=== PATIENT | male | born 1950 | race Caucasian/White ===

== ENCOUNTER → 2018-03-09 | Outpatient (CLI) | payer MEDICARE, OTHER | LOC: GMAJS 12:19 | PROVIDERS: ATTEND Physician Assistant | DX: E11.9 Type 2 diabetes mellitus without complications (principal); Z12.5 Encounter for screening for malignant neoplasm of prostate | CPT/HCPCS: 84439; 84443; G0103 ==

== ENCOUNTER → 2019-06-16 | Outpatient (CLI) | payer MEDICARE, OTHER | LOC: GMAJ 11:09 | PROVIDERS: ATTEND Family Medicine | DX: E29.1 Testicular hypofunction (principal) ==

== ENCOUNTER → 2019-10-27 | Outpatient (CLI) | payer MEDICARE, OTHER | LOC: GMAJ 10:21 | PROVIDERS: ATTEND Family Medicine | DX: Z12.5 Encounter for screening for malignant neoplasm of prostate (principal); E29.1 Testicular hypofunction; I10 Essential (primary) hypertension; E11.9 Type 2 diabetes mellitus without complications | CPT/HCPCS: 84403; G0103 ==

== ENCOUNTER 2019-12-09 14:33 | Emergency (ER) | payer MEDICARE, OTHER ==
--- NOTE | 2019-12-09 14:48 | ED.PDOC ---
History of Present Illness - General Time Seen by Provider: 12/09/19 14:41 Source: patient, family Additional Information: this is a patient with hx of diabetes, patient was diagnosed with an UTI on Friday and He received a shot of rocephin and put on cipro. patient had some urinary incontinence and developed fever today. Patient was sent here by his primary md. his initial urine culture showed gram negative bacilli. patient does not appear toxic no fever 1 month ago patient had an angiogram no recent travels and no sick contacts - History of Present Illness Timing/Duration: getting worse Fever Severity/Quality: greater than 102 F Fever Therapy BEVELER: Tylenol Associated Symptoms: denies symptoms Review of Systems - Review of Systems Constitutional: States: chills, fever EENTM: States: no symptoms reported Respiratory: States: no symptoms reported Cardiology: States: no symptoms reported Gastrointestinal/Abdominal: States: no symptoms reported Genitourinary: States: frequency, other - incontinence Musculoskeletal: States: no symptoms reported Skin: States: no symptoms reported Neurological: States: no symptoms reported Endocrine: States: no symptoms reported Hematologic/Lymphatic: States: no symptoms reported Family Medical History - Family History Mother Family History: Unknown Physical Exam - Physical Exam General Appearance: Alert, Well Developed, Well Groomed, Well Hydrated, Well Nourished Eye Exam: bilateral normal ENT Exam: normal ENT inspection, hearing grossly normal, TMs normal, pharynx normal Neck: non-tender, full range of motion, supple, normal inspection, trachea midline Respiratory: chest non-tender, lungs clear, normal breath sounds, no respiratory distress, no accessory muscle use Cardiovascular/Chest: normal peripheral pulses, regular rate, rhythm, no edema, no gallop, no JVD, no murmur Gastrointestinal/Abdominal: normal bowel sounds, non tender, soft, no organomegaly, no pulsatile mass Extremity: normal range of motion, non-tender, normal inspection, no calf tenderness Neurologic: alert, normal mood/affect, oriented x 3, abnormal cerebellar tests Skin Exam: normal color Progress - Progress Progress: 12/09/19 15:52 this patient have been on abx since friday and spike a fever today when patient arrived he doesnt appear toxic and no coughing, no respiratory distress, no neck pain, and no fever patient urine showed 5-10 WBC negative and chest x rays didnt show any evidence of clear pneumonia I wqas able to speak with Dr Castle his primary md and he stated that patient can be discharge home and that he will follow up with them tomorrow patient has not travel and not exposed to [place] person [place] from [place] no reason to suspect Covid-19 Departure - Departure Clinical Impression: Urinary tract infection Qualifiers: Urinary tract infection type: site unspecified Hematuria presence: without hematuria Qualified Code(s): N39.0 - Urinary tract infection, site not specified Disposition: Discharge to Home or Self Care Instructions: DI for Urinary Tract Infection (UTI) Referrals: Francois Castle MD [Primary Care Provider] - 1-2 Weeks Additional Instructions: return to the ER if high fever, chills, nausea, vomiting, abdominal pain, bloody urine, painful urination, altered mental status
[2019-12-09 14:50] VITALS: TEMP 98.6
[2019-12-09 15:38] VITALS: O2SAT 95
[2019-12-09 16:12] VITALS: BP 106/70
--- NOTE | 2019-12-09 16:24 | RAD ---
EXAM DESCRIPTION: Chest,1 View: CR/DR/XR. CLINICAL HISTORY: 69 years Male fever COMPARISON: None. TECHNIQUE: ONE VIEW PORTABLE. 1511 AP hours, upright position. FINDINGS: Poor inspiratory effort. Sternotomy wires and some are broken. Cardiac surgical hardware. Mild cardiomegaly. Pulmonary vascularity not increased. No acute infiltrate or pleural effusion. Crowding together of bronchovascular markings. IMPRESSION: Limited by poor respiratory effort. No radiographic evidence of acute cardiopulmonary disease. Electronically signed by: Cesar Sewell MD 12/09/2019 4:23 PM CDT
== END 2019-12-09 16:12 | disposition home or self-care (01) ==
LOC: ER 14:33
DX: N39.0 Urinary tract infection, site not specified (principal); R50.9 Fever, unspecified; R32 Unspecified urinary incontinence; E11.9 Type 2 diabetes mellitus without complications

== ENCOUNTER → 2020-06-13 | Outpatient (CLI) | payer MEDICARE, OTHER | LOC: GMAJ 10:30 | PROVIDERS: ATTEND Family Medicine | DX: R41.9 Unspecified symptoms and signs involving cognitive functions and awareness (principal) ==

== ENCOUNTER → 2020-06-20 | Outpatient (CLI) | payer MEDICARE, OTHER ==
--- NOTE | 2020-06-15 09:39 | MRI ---
EXAM DESCRIPTION: Brain w/o Contrast CLINICAL HISTORY: UNSPECIFIED SYMPTOMS AND SIGNS INVOLVING COGNITIVE FUNCTIONS COMPARISON: None available TECHNIQUE: Non contrast MRI of the brain is performed according to our usual protocol including multiplanar multi sequence technique. FINDINGS: No hemorrhage, mass effect, restricted diffusion, or acute infarction is present. There is normal configuration of the ventricles and sulci. Mild generalized volume loss. Mild T2/FLAIR hyperintensities in the supratentorial white matter. No abnormal extra-axial fluid collections are present. Normal flow voids are present. The calvarium is intact. Small right mastoid effusion. The visualized paranasal sinuses are clear. IMPRESSION: 1. No acute intracranial abnormality. 2. Mild senescent changes. Electronically signed by: Uriel Greene MD 06/15/2020 9:37 AM CDT
== END ==
LOC: GMAJ 09:40
PROVIDERS: ATTEND Family Medicine
DX: R41.9 Unspecified symptoms and signs involving cognitive functions and awareness (principal); G31.1 Senile degeneration of brain, not elsewhere classified

== ENCOUNTER 2020-07-28 10:49 | Observation (INO) | payer MEDICARE, OTHER ==
[2020-07-28] MEDS ORDERED: ALBUTEROL SULFATE 2.5 MG/3 ML VIAL NEB ONE (11:15)
[2020-07-28] MEDS ORDERED: IPRATROPIUM BROMIDE NEBS 0.5 MG/2.5 ML VIAL NEB ONE (11:15)
--- NOTE | 2020-07-28 11:18 | ED.PDOC ---
History of Present Illness - General Chief Complaint: Respiratory Problem Stated Complaint: SOB. dry cough, COVID+, dizziness Time Seen by Provider: 07/28/20 11:05 Additional Information: Patient is a 69-year-old male who presents to the ED with chief complaint of shortness of breath. Patient was diagnosed with Covid approximately 3 to 4 days ago and since then his sx have been persistent with worsening shortness of breath. Patient has low-grade fever to 101. He has an occasional dry cough, he denies chest pain, nausea, vomiting, chills. Patient has a history of CAD and has stents and is status post CABG. Patient denies history of intrinsic lung disease. Patient is otherwise asymptomatic. - History of Present Illness Allergies/Adverse Reactions: Allergies NO KNOWN ALLERGY Allergy (Verified 12/09/19 14:46) Home Medications: Ambulatory Orders Clopidogrel Bisulfate [Plavix] 75 mg PO QD 07/28/20 Donepezil HCl [Aricept] 5 mg PO BEDTIME 07/28/20 Dulaglutide [Trulicity] 1.5 mg SC WKLY 07/28/20 Empagliflozin [Jardiance] 10 mg PO DAILY 07/28/20 Escitalopram [Lexapro] 10 mg PO DAILY 07/28/20 Lisinopril 5 mg PO DAILY 07/28/20 Metformin HCl [Metformin Hydrochloride E] 1,000 mg PO BID 07/28/20 Metoprolol Succinate [Toprol Xl] 25 mg PO DAILY 07/28/20 Multiple Vitamin [Multivitamin Adult] 1 tab PO DAILY 07/28/20 [place]-3 Fatty Acids [Fish Oil [place]-3 1000 mg] 1 cap PO BID 07/28/20 Rosuvastatin Calcium 40 mg PO DAILY 07/28/20 Testosterone Cypionate 0.5 ml IJ .[id number] 07/28/20 Review of Systems - Review of Systems Constitutional: States: see HPI, fever, weakness. Denies: chills EENTM: Denies: nose pain, nose congestion Respiratory: States: see HPI, short of breath Cardiology: States: no symptoms reported, chest pain Gastrointestinal/Abdominal: States: diarrhea - slight. Denies: abdominal pain, nausea, vomiting Genitourinary: States: no symptoms reported Musculoskeletal: States: muscle pain Skin: States: no symptoms reported All other Systems: Reviewed and Negative Past Medical History (General) - Patient Medical History Hx Diabetes: Yes - Vaccination History Hx Influenza Vaccination: No Hx Pneumococcal Vaccination: Yes - Social History Hx Alcohol Use: No Family Medical History - Family History Mother Family History: Unknown Physical Exam - Physical Exam General Appearance: Comfortable, No apparent distress, Well Developed, Well Nourished Eyes, Ears, Nose, Throat Exam: normal ENT inspection, pharynx normal Neck: full range of motion, supple Respiratory: chest non-tender, lungs clear, normal breath sounds, no respiratory distress, no accessory muscle use Cardiovascular/Chest: normal peripheral pulses, regular rate, rhythm Peripheral Pulses: radial,right: 2+, radial,left: 2+ Gastrointestinal/Abdominal: normal bowel sounds, non tender, soft, no organomegaly 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 Negative STEMI. 07/28/20 15:02 Patient reassessed and is stable and feeling well at rest. His ambulatory O2 sats on arrival were 93%. Patient's D-dimer was elevated and CT chest was done which shows subsegmental PE. Patient is presently taking Plavix and has developed PE despite being anticoagulated and patient will require admission for further anticoagulation. Subcutaneous Lovenox given in the ED. of note, patient's CO2 was low at 16 and his anion gap was elevated at 21 but patient glucose was only 129 and he is not in DKA. Patient was given IV fluids and repeat BMP is pending. 07/28/20 15:35 I have spoken with Lj Sun, hospitalist, who has spoken with patient's physician Dr. Harpreet Castle, and they accept patient for admission to the hospital. - Results/Orders Results/Orders: Differential diagnosis includes ACS, CA, pneumonia, PE. Departure - Departure Clinical Impression: COVID-19 determined by clinical diagnostic criteria Pulmonary embolism Qualifiers: Pulmonary embolism type: multiple subsegmental (without acute cor pulmonale) Qualified Code(s): I26.94 - Multiple subsegmental pulmonary emboli without acute cor pulmonale Time of Disposition: 15:06 Disposition: Admit Patient Condition: Fair Home Medications: Ambulatory Orders Clopidogrel Bisulfate [Plavix] 75 mg PO QD 07/28/20 Donepezil HCl [Aricept] 5 mg PO BEDTIME 07/28/20 Dulaglutide [Trulicity] 1.5 mg SC WKLY 07/28/20 Empagliflozin [Jardiance] 10 mg PO DAILY 07/28/20 Escitalopram [Lexapro] 10 mg PO DAILY 07/28/20 Lisinopril 5 mg PO DAILY 07/28/20 Metformin HCl [Metformin Hydrochloride E] 1,000 mg PO BID 07/28/20 Metoprolol Succinate [Toprol Xl] 25 mg PO DAILY 07/28/20 Multiple Vitamin [Multivitamin Adult] 1 tab PO DAILY 07/28/20 [place]-3 Fatty Acids [Fish Oil [place]-3 1000 mg] 1 cap PO BID 07/28/20 Rosuvastatin Calcium 40 mg PO DAILY 07/28/20 Testosterone Cypionate 0.5 ml IJ .[id number] 07/28/20 Decision To Admit - Decistion To Admit Decision to Admit Reason: Admit from ER Decision to Admit Date: 07/28/20 Decision to Admit Time: 15:06
[2020-07-28] MEDS ORDERED: ALBUTEROL INHALER 64 PUFF/8GM INH ONE ×2 (11:33→11:38)
--- NOTE | 2020-07-28 12:03 | RAD ---
EXAM DESCRIPTION: Chest,1 View CLINICAL HISTORY: SOB COMPARISON: 09 December 2019 TECHNIQUE: AP portable chest FINDINGS: Patient is poststernotomy. The lungs are clear. The heart is within range of normal. No pleural fluid is seen. IMPRESSION: The patient is poststernotomy. The chest is otherwise unremarkable. Electronically signed by: Gualberto Thomas MD 07/28/2020 12:01 PM [facility]
[2020-07-28] MEDS ORDERED: SODIUM CHLORIDE 0.9% 1000ML 1,000 ML IVS ONE (12:39)
--- NOTE | 2020-07-28 14:30 | CT ---
EXAM DESCRIPTION: CTA Chest: Computed Tomography. CLINICAL HISTORY: SOB, elevated DD COMPARISON: Portable chest x-ray on the same visit. TECHNIQUE: Spiral-axial scans at 2.5 x 2.5 mm intervals through the pulmonary arteries and chest after bolus infusion of IV contrast. Lung algorithm 1.25 x 2.5-mm axial reconstructions. 2.0 Mm reconstructions. 10.0 mm PE oblique 3-D reformatted images. No adverse reactions. Total Exam DLP: 840 mGy-cm. This exam was performed according to our departmental CT dose-optimization program which includes automated exposure control, adjustment of the mA and/or kV according to patient size and/or use of iterative reconstruction technique; to reduce radiation dose to as low as reasonably achievable (ALARA). FINDINGS: Pulmonary arteries: Contrast enhancement is suboptimal, less than contrast density in the superior vena cava and right atrium. Beam hardening artifact also due to dense contrast in the proximal SVC. Filling defects are visualized in the left lower lobe are pulmonary artery branches and the pulmonary artery branches to the lingula. Filling defect also seen in the segmental pulmonary artery branches from the right upper lobe are pulmonary artery. Heart and other great vessels: More contrast density in the proximal superior vena cava, right atrium, and right ventricle than the right pulmonary artery vagus cephalic vessels and aorta with atherosclerotic calcification and intimal wall thickening in the aorta but no aneurysm. Lungs and airways: Bibasilar subpleural densities possibly atelectasis but also subpleural groundglass densities left upper lobe and lingula and right middle lobe and superior segments of the lower lobes. Pleura: No calcification. Minimal thickening but no acute process. Mediastinum and ailyn: scatter artifact from dense PA contrast. Lymph nodes in the upper mediastinum, middle mediastinum, and bilateral ailyn ranging in size from 5 mm to 1.5 mm diameter. No dominant solid mass. Soft tissue neck, chest wall, and axillae: Normal sized Nodes in the axilla. No dominant soft tissue mass. Upper abdomen: LAP-BAND bariatric surgery present. No definite complications.: No free air or free fluid. Normal size and density of the adrenal glands and spleen. Gallbladder visualized. Osseous structures: Numerous sternotomy wires. Spondylosis at several levels of the thoracic spine. Sternoclavicular arthrosis. IMPRESSION: 1. Small pulmonary thrombus in segmental branches of the left lower lobar pulmonary artery and segmental arteries to the lingula. Also segmental pulmonary artery branches from the right upper lobar pulmonary artery. Study is limited due to less optimal contrast enhancement of the pulmonary artery system and scatter artifact from the dense contrast in the proximal superior vena cava and right atrium. 2. Bibasilar atelectasis with bilateral subpleural groundglass densities. [facility] Best Practice guidelines: Commonly reported imaging features of viral pneumonia are present. Other processes such as influenza pneumonia and organizing pneumonia, as can be seen with drug toxicity and connective tissue disease, can cause a similar imaging pattern. Reference: https://pubs.rsna.org/doi/full/10.1148/ryct.2860656281 3. Borderline adenopathy mediastinum and hilum Electronically signed by: Cesar Sewell MD 07/28/2020 2:28 PM [facility]
[2020-07-28] MEDS ORDERED: ENOXAPARIN SODIUM 100 MG/ML SYG SUBCU ONE (15:06)
--- NOTE | 2020-07-28 15:44 | HP ---
SUPERVISING PHYSICIAN: Solomon Rogers MD CHIEF COMPLAINT: Shortness of breath, cough, Covid positive. HISTORY OF PRESENT ILLNESS: Mr. De La Rosa is a 69 year-old male patient who presented to the Emergency Department today complaining of some shortness of breath. He tested positive for Covid approximately 4 days previously. Since that point, his symptoms persistently worsened and he has significant shortness of breath today. He has also had a low grade fever of 101. He denied chest pain, nausea or vomiting or chills. He does have a significant history of previous stents and a coronary artery bypass graft. Workup in the Emergency Room showed he had a D-dimer of 732. CT of his chest did show a small pulmonary thrombus in the segmental branches of the left lower lobe pulmonary artery. There is also note of bilateral atelectasis and bilateral subpleural ground glass densities. His other labs showed a normal white count with a left shift and low lymphocyte count as well. His white count was 5,600. Chemistries showed sodium of 132, he did have an anion gap of 19.3, lactic acid was normal at 1.0 with a calcium of 8.0 Bilirubin slightly elevated at 1.2. Other liver functions showing to be within normal limits. Troponin and BNP were normal. C- reactive protein was pending. Blood cultures were completed. He was started on Lovenox and treatment for underlying Covid pneumonia. He is now going to be placed in observation initially for further evaluation and treatment. PAST MEDICAL HISTORY: 1. Carotid artery stenosis. 2. Coronary artery disease. 3. Hyperlipidemia. 4. Hypertension. 5. Type 2 diabetes. 6. Alzheimer's diagnosed in 2019. PAST SURGICAL HISTORY: 1. Coronary artery bypass graft, 5 vessels in 2008. CURRENT MEDICATIONS: Awaiting updated list of medications in electronic medical records. ALLERGIES: FAMILY HISTORY: Noncontributory to current admission. SOCIAL HISTORY: The patient is retired from the oil industry. He is and has one child. He has never smoked, does not drink alcohol or use illicit drugs. REVIEW OF SYSTEMS: CONSTITUTIONAL: As noted in history of present illness. Does have fever, weakness, denies any chills. HEENT: Denies headaches. vision changes, sore throat. nasal congestion, earaches. CHEST: As noted in history of present illness. Increasing shortness of breath with a dry cough. HEART: Denies chest pain, palpitations, or syncopal episodes. ABDOMEN: Denies nausea, vomiting, abdominal pain. Noted he had some slight diarrhea. GENITOURINARY: Denies dysuria, hematuria or polyuria. MUSCULOSKELETAL: Denies joint swelling, does have some generalized muscle pain associated with his fever. SKIN: Denies lesions, rashes, moles or unexplained changes. NEUROLOGIC: Denies ataxia, seizures, vision changes or syncopal episodes, has recently been diagnosed with dementia. HEMATOLOGICAL: Denies unexplained bleeding, easy bruising or transfusion reactions. PHYSICAL EXAMINATION: VITAL SIGNS: Temperature 100.1, pulse 83, blood pressure 144/74, respirations 18, [id number] 95% room saturations. GENERAL: The patient does look but looks to be in no acute distress at time of exam. HEENT: Tympanic membranes clear bilaterally. Oropharynx pink, moist, no lesions. NECK: Supple, non-tender, full range of motion. No jugular venous distention. CHEST: Lung sounds are fairly clear throughout, just diminished toward the bases. CARDIOVASCULAR: Regular rate and rhythm without appreciable murmurs, rubs, or gallops. ABDOMEN: Soft, non-tender, positive bowel sounds. EXTREMITIES: No cyanosis, clubbing, or edema. NEUROLOGIC: Cranial nerves II through XII are grossly intact. He is alert and oriented x3. SKIN: Warm, pink and dry. LABORATORY: White count 5, 600, hemoglobin 13.7, hematocrit 40.2, differential does show a left shift with a low lymphocyte count. Normal platelet count at 224,000. His RBC indices indicate a microcytosis. Coagulation studies showed D-dimer elevated at 732. Chemistries showed sodium 132, potassium 4.3, anion gap elevated at 19.3, carbon dioxide of 20, BUN 25, lactic acid normal. Glucose 129, calcium 8.1. RADIOLOGY: CT of his chest per radiology interpretation showed small pulmonary thrombus in the segmental branches of the left lower lobe, pulmonary artery and segmental arteries and lingula. Looks like some pulmonary artery branches from the right upper lobe, some basilar atelectasis with bilateral subpleural ground glass densities, some borderline adenopathy in the mediastinum and hilum. ASSESSMENT: 1. Covid pneumonitis. 2. Pulmonary embolus involving the left lower lobe, pulmonary artery system and segmental arteries and lingula as well as the pulmonary artery branches from the right upper lobe pulmonary artery likely secondary to #1 with elevated D-dimer. 3. Electrolyte imbalance with hyponatremia. 4. Metabolic acidosis likely due to some mild hypoxia as noted in #1 with no signs of underlying sepsis. 5. History of hypertension. 6. History of type 2 diabetes. 7. History of Alzheimer's disease just recently diagnosed in 2019. 8. History of coronary artery disease with carotid artery stenosis and previous coronary artery bypass graft. PLAN: Mr. De La Rosa is going to be placed in observation initially for close treatment and evaluation given he has an active pulmonary embolus and underlying Covid pneumonitis and risk factors including cardiovascular disease, diabetes and hypertension. He was showing saturations on room air of 95% but he is running a fever and has some mild shortness of breath when he has exertion, desaturation down to about 93%. He has been started on Lovenox 1 mg/kg for underlying PE treatment. Will continue treatment for the Covid pneumonitis with azithromycin, ceftriaxone, dexamethasone, Protonix, Remdesivir, Align. He will also be on breathing treatments p.r.n. if needed as well as cough medicine as needed. We will hold off on any fluids at this point. Will follow his labs as per protocol. He will be on insulin sliding scale per protocol. I would anticipate his length of stay to be at least 1 to 2 days, possibly longer, depending on how he does clinically. He will certainly need to go home on a long-term anticoagulant. We will work with Dr. Castle in the determination of that at time of discharge. Until we can transition patient to outpatient management, we will continue to monitor and treat as needed. #[id number] [facility]
[2020-07-28] MEDS ORDERED: GLUCAGON INJ 1 MG VIAL SUBCU PRN (17:13)
[2020-07-28] MEDS ORDERED: ONDANSETRON INJ 4 MG/2 ML VIAL IV PRN (17:13)
[2020-07-28] MEDS ORDERED: DEXTROSE 50% 25 GM/50 ML SYG IV PRN (17:13)
[2020-07-28] MEDS ORDERED: SODIUM CHLORIDE 0.9% (FLUSH) 10 ML SYG IV PRN (17:13)
[2020-07-28] MEDS ORDERED: ALBUTEROL INHALER 64 PUFF/8GM INH PRN (17:23)
[2020-07-28] MEDS ORDERED: REMDESIVIR 200 MG in SODIUM CHLORIDE 0.9% 250ML 250 ML IVPB ONE (17:25)
[2020-07-28] MEDS ORDERED: IV SET AND CAP CHANGE INJ INJ SCH (17:30)
[2020-07-28] MEDS ORDERED: SODIUM CHLORIDE 0.9% 250ML 250 ML ONE ×2 (18:12→19:11)
[2020-07-28] MEDS ORDERED: REMDESIVIR 200 MG ONE (18:12)
[2020-07-28] MEDS ORDERED: AZITHROMYCIN IV 500 MG VIAL IVPB ONE (19:10)
[2020-07-28] MEDS ORDERED: cefTRIAXone SODIUM 1 GM VIAL ONE (19:11)
[2020-07-28] MEDS ORDERED: SODIUM CHL 0.9% 50ML MIN-BAG+ 50 ML IVPB ONE (19:11)
[2020-07-28] MEDS ORDERED: ACETAMINOPHEN 325 MG TAB ONE (19:44)
[2020-07-28] MEDS: ACETAMINOPHEN 325 MG TAB PO PRN (19:45)
[2020-07-28] MEDS ORDERED: PROMETHAZINE W/CODEINE SYR 5 ML UD PO PRN (20:29)
[2020-07-28] MEDS ORDERED: CLOPIDOGREL 75 MG TAB PO SCH (21:00)
[2020-07-28] MEDS: cefTRIAXone SODIUM 1 GM in SODIUM CHL 0.9% 50ML MIN-BAG+ 50 ML IVPB SCH (21:05)
[2020-07-28] MEDS ORDERED: DONEPEZIL HCL 5 MG TAB ONE (21:20)
[2020-07-28] MEDS ORDERED: metFORMIN XR 500 MG TAB.ER.24 PO ONE (21:20)
[2020-07-28] MEDS: DONEPEZIL HCL 5 MG TAB PO SCH (21:21)
[2020-07-28] MEDS: NON-FORMULARY MEDICATION 1 EA MIS (Metformin Hcl [Metformin Hydrochloride E] 1,000 MG) PO SCH (21:22)
[2020-07-28] MEDS: INSULIN LISPRO 100 UNITS/ML PEN SUBCU SCH (21:23)
[2020-07-28] MEDS: AZITHROMYCIN IV 500 MG in SODIUM CHLORIDE 0.9% 250ML 250 ML IVPB SCH (21:23)
[2020-07-28] MEDS: ALBUTEROL INHALER 64 PUFF/8GM INH SCH (22:10)
[2020-07-28] MEDS ORDERED: IBUPROFEN 400 MG TAB PO PRN (23:58)
[2020-07-29] MEDS ORDERED: IBUPROFEN 400 MG TAB ONE (00:07)
[2020-07-29] MEDS ORDERED: PANTOPRAZOLE SODIUM IV 40 MG VIAL ONE ×2 (06:06→19:28)
[2020-07-29] MEDS: PANTOPRAZOLE SODIUM IV 40 MG VIAL IV SCH (06:08)
[2020-07-29] MEDS: INSULIN LISPRO 100 UNITS/ML PEN SUBCU SCH ×4 (07:48→20:42)
[2020-07-29] MEDS ORDERED: ENOXAPARIN SODIUM 100 MG/ML SYG SUBCU ONE ×2 (07:52→19:27)
[2020-07-29] MEDS ORDERED: DEXAMETHASONE INJ 10 MG/ML VIAL ONE (07:52)
[2020-07-29] MEDS ORDERED: LISINOPRIL 5 MG TAB ONE (07:53)
[2020-07-29] MEDS ORDERED: METOPROLOL SUCCINATE XL 25 MG TAB PO ONE (07:53)
[2020-07-29] MEDS ORDERED: metFORMIN HCL 500 MG TAB ONE ×2 (07:53→19:28)
[2020-07-29] MEDS ORDERED: ESCITALOPRAM 10 MG TAB ONE (07:53)
[2020-07-29] MEDS ORDERED: BIFIDOBACTERIUM INFANTIS 4 MG CAP ONE (07:53)
--- NOTE | 2020-07-29 08:02 | RAD ---
CHEST, ONE VIEW XR CLINICAL HISTORY: covid COMPARISON: 07/28/2020. TECHNIQUE: AP Chest. FINDINGS: Heart is mildly enlarged. Sternal wires and mediastinal clips are present. Normal pulmonary vascularity. There are faint opacities within the left lower lobe compatible with infiltrates, slightly worse. Right lung is clear. Pleural spaces are clear. No pneumothorax. Unremarkable soft tissues and bones. IMPRESSION: 1. Increasing mild left lower lobe pulmonary infiltrates. Electronically signed by: Tracy Zamudio DO 07/29/2020 8:00 AM [facility]
[2020-07-29] MEDS: ALBUTEROL INHALER 64 PUFF/8GM INH SCH ×4 (09:45→20:05)
[2020-07-29] MEDS ORDERED: ACETAMINOPHEN 325 MG TAB ONE (09:52)
[2020-07-29] MEDS ORDERED: SODIUM CHLORIDE 0.9% 250ML 250 ML ONE ×2 (09:53→17:36)
[2020-07-29] MEDS ORDERED: REMDESIVIR 100 MG ONE (09:53)
[2020-07-29] MEDS: NON-FORMULARY MEDICATION 1 EA MIS (Metformin Hcl [Metformin Hydrochloride E] 1,000 MG) PO SCH ×2 (10:05→20:23)
[2020-07-29] MEDS: LISINOPRIL 5 MG TAB PO SCH (10:05)
[2020-07-29] MEDS: ESCITALOPRAM 10 MG TAB PO SCH (10:05)
[2020-07-29] MEDS: BIFIDOBACTERIUM INFANTIS 4 MG CAP PO SCH (10:05)
[2020-07-29] MEDS: METOPROLOL SUCCINATE XL 25 MG TAB PO SCH (10:05)
[2020-07-29] MEDS: NON-FORMULARY MEDICATION 1 EA MIS (Empagliflozin [Jardiance] 10 MG) PO SCH (10:05)
[2020-07-29] MEDS: REMDESIVIR 100 MG in SODIUM CHLORIDE 0.9% 250ML 250 ML IVPB SCH (10:06)
[2020-07-29] MEDS: ACETAMINOPHEN 325 MG TAB PO PRN (10:06)
[2020-07-29] MEDS ORDERED: ASPIRIN/ACETAMINOPHEN/CAFFEINE 1 EA TAB PO ONE (10:23)
[2020-07-29] MEDS ORDERED: ACETAMINOPHEN-CAFF-BUTALBITAL 1 EA TAB ONE (11:13)
[2020-07-29] MEDS ORDERED: ACETAMINOPHEN-CAFF-BUTALBITAL 1 EA TAB PO ONE (11:23)
[2020-07-29] MEDS: DEXAMETHASONE INJ 10 MG/ML VIAL IV SCH (11:25)
[2020-07-29] MEDS: NON-FORMULARY MEDICATION 1 EA MIS (Rosuvastatin Calcium [Rosuvastatin Calcium] 40 MG) PO SCH (11:25)
--- NOTE | 2020-07-29 15:54 | PN ---
SUPERVISING PHYSICIAN: Solomon Rogers MD DATE: 07/29/20 SUBJECTIVE: The patient has been having a headache which has been going away with Tylenol. He has also been having intermittent fever which has responded to either Motrin or Tylenol. He is still having some shortness of breath, otherwise, he has not had any chest pain, nausea or vomiting. OBJECTIVE: VITAL SIGNS: Temperature 101.9, pulse 92, blood 126/89, respirations 18 to 26, showing 94% oxygen saturation on room air. GENERAL: The patient looks to be resting comfortably at time of exam and I n no acute distress. He is alert. CHEST: Lungs sounds just diminished. I do not hear any rhonchi, rales, or wheezes. HEART: Regular rate and rhythm. ABDOMEN: Soft, non-tender, positive bowel sounds. EXTREMITIES: Without edema. NEUROLOGIC: Alert and oriented x 3. LABORATORY: White count 4,100, hemoglobin 13.2, hematocrit 38.8, platelet count 204,000, differential does show to be without a left shift today. Coagulation studies - D-dimer is down to 445, fibrinogen at 485, PTT 34.5. Chemistries show sodium 134, potassium 4.2, creatinine 0.96. Blood sugars range between 96 and 124, magnesium 2.1, liver functions within normal limits. Troponin less than 0.02. C-reactive protein was up to 7.1. Urinalysis last night showed 500 glucose, 40 of ketones. MICROBIOLOGY: Blood cultures negative at 24 hours. RADIOLOGY: Repeat chest x-ray this morning per radiology interpretation showed increasing mild left lower lobe infiltrates. ASSESSMENT: 1. Covid-19 pneumonitis, left lower lobe. 2. Pulmonary embolus involving the left lower lobe, pulmonary artery system and segmental arteries and lingula as well as the pulmonary artery branches from the right upper lobe pulmonary artery likely secondary to #1 with elevated D-dimer, patient responding to treatment. 3. Mild electrolyte imbalance to include hyponatremia. 4. Metabolic acidosis on admission with an elevated anion gap, now closed and resolved with treatment. . 5. Hypertension. 6. Type 2 diabetes mellitus. 7. Alzheimer's disease recently diagnosed in 2019. 8. History of coronary artery disease with carotid artery stenosis and previous coronary artery bypass graft. PLAN: Mr. De La Rosa is still going to be continued in observation at this point with close continuation of treatment with Lovenox for treatment of the pulmonary embolus as well as Covid pneumonitis pneumonia with Rocephin, azithromycin, Decadron. He will be on oxygen as needed. Hopefully, we will transition him to outpatient management within the next 24 to 48 hours. We will follow labs until then and continue to monitor and treat as needed. #[id number] [facility]
[2020-07-29] MEDS ORDERED: SODIUM CHL 0.9% 50ML MIN-BAG+ 50 ML IVPB ONE (17:36)
[2020-07-29] MEDS ORDERED: AZITHROMYCIN IV 500 MG VIAL IVPB ONE (17:36)
[2020-07-29] MEDS ORDERED: cefTRIAXone SODIUM 1 GM VIAL ONE (17:36)
[2020-07-29] MEDS ORDERED: INSULIN LISPRO 100 UNITS/ML PEN SUBCU ONE (17:37)
[2020-07-29] MEDS: cefTRIAXone SODIUM 1 GM in SODIUM CHL 0.9% 50ML MIN-BAG+ 50 ML IVPB SCH (17:49)
[2020-07-29] MEDS: AZITHROMYCIN IV 500 MG in SODIUM CHLORIDE 0.9% 250ML 250 ML IVPB SCH (18:12)
[2020-07-29] MEDS ORDERED: DONEPEZIL HCL 5 MG TAB ONE (19:28)
[2020-07-29] MEDS ORDERED: guaiFENesin ER TAB 600 MG TAB ONE (19:28)
[2020-07-29] MEDS: guaiFENesin ER TAB 600 MG TAB PO SCH (20:23)
[2020-07-29] MEDS: DONEPEZIL HCL 5 MG TAB PO SCH (20:23)
[2020-07-30] MEDS ORDERED: ACETAMINOPHEN 325 MG TAB ONE (01:22)
[2020-07-30] MEDS: ACETAMINOPHEN 325 MG TAB PO PRN (01:23)
[2020-07-30] MEDS: PANTOPRAZOLE SODIUM IV 40 MG VIAL IV SCH (06:12)
[2020-07-30] MEDS: INSULIN LISPRO 100 UNITS/ML PEN SUBCU SCH ×2 (07:41→15:36)
[2020-07-30] MEDS ORDERED: BIFIDOBACTERIUM INFANTIS 4 MG CAP ONE (07:56)
[2020-07-30] MEDS ORDERED: DEXAMETHASONE INJ 10 MG/ML VIAL ONE (07:56)
[2020-07-30] MEDS ORDERED: ENOXAPARIN SODIUM 100 MG/ML SYG SUBCU ONE (07:56)
[2020-07-30] MEDS ORDERED: guaiFENesin ER TAB 600 MG TAB ONE (07:56)
[2020-07-30] MEDS ORDERED: SODIUM CHLORIDE 0.9% 250ML 250 ML ONE ×2 (07:57→14:35)
[2020-07-30] MEDS ORDERED: METOPROLOL SUCCINATE XL 25 MG TAB PO ONE (07:57)
[2020-07-30] MEDS ORDERED: metFORMIN HCL 500 MG TAB ONE (07:57)
[2020-07-30] MEDS ORDERED: REMDESIVIR IV 100 MG VIAL ONE (07:57)
[2020-07-30] MEDS ORDERED: LISINOPRIL 5 MG TAB ONE (07:57)
[2020-07-30] MEDS ORDERED: ESCITALOPRAM 10 MG TAB ONE (07:57)
[2020-07-30] MEDS: BIFIDOBACTERIUM INFANTIS 4 MG CAP PO SCH (08:38)
[2020-07-30] MEDS: DEXAMETHASONE INJ 10 MG/ML VIAL IV SCH (08:39)
[2020-07-30] MEDS: NON-FORMULARY MEDICATION 1 EA MIS (Empagliflozin [Jardiance] 10 MG) PO SCH (08:39)
[2020-07-30] MEDS: NON-FORMULARY MEDICATION 1 EA MIS (Metformin Hcl [Metformin Hydrochloride E] 1,000 MG) PO SCH (08:39)
[2020-07-30] MEDS: ESCITALOPRAM 10 MG TAB PO SCH (08:39)
[2020-07-30] MEDS: LISINOPRIL 5 MG TAB PO SCH (08:40)
[2020-07-30] MEDS: REMDESIVIR 100 MG in SODIUM CHLORIDE 0.9% 250ML 250 ML IVPB SCH (08:40)
[2020-07-30] MEDS: guaiFENesin ER TAB 600 MG TAB PO SCH (08:40)
[2020-07-30] MEDS: NON-FORMULARY MEDICATION 1 EA MIS (Rosuvastatin Calcium [Rosuvastatin Calcium] 40 MG) PO SCH (08:40)
[2020-07-30] MEDS: METOPROLOL SUCCINATE XL 25 MG TAB PO SCH (08:40)
[2020-07-30] MEDS: ALBUTEROL INHALER 64 PUFF/8GM INH SCH ×2 (09:00→12:48)
[2020-07-30 10:03] VITALS: O2SAT 94
--- NOTE | 2020-07-30 10:27 | RAD ---
EXAM: XR Chest, 1 View CLINICAL HISTORY: covid TECHNIQUE: Frontal view of the chest. COMPARISON: 07/29/2020 FINDINGS: Lungs: Shallow inspiration with new mild left atelectasis present. Stable mild patchy airspace disease in the left base. Pleural space: No pneumothorax or pleural effusion. Heart: Stable cardiac enlargement. Mediastinum: No abnormality noted. Bones/joints: No osseous destruction or sclerosis noted. IMPRESSION: Stable left basilar patchy airspace disease with new small focus of atelectasis in the left midlung. Electronically signed by: Danae Rosenbaum MD 07/30/2020 10:25 AM PHYSICIAN RELATIONS MANAGER
[2020-07-30 14:27] VITALS: BP 123/81; TEMP 97.2
[2020-07-30] MEDS ORDERED: AZITHROMYCIN IV 500 MG VIAL IVPB ONE (14:35)
[2020-07-30] MEDS ORDERED: SODIUM CHL 0.9% 50ML MIN-BAG+ 50 ML IVPB ONE (14:35)
[2020-07-30] MEDS ORDERED: cefTRIAXone SODIUM 1 GM VIAL ONE (14:35)
[2020-07-30] MEDS ORDERED: APIXABAN 5 MG TAB PO ONE ×2 (15:03→15:56)
[2020-07-30] MEDS ORDERED: AZITHROMYCIN 250 MG TAB PO ONE (15:22)
[2020-07-30] MEDS ORDERED: CEFDINIR 300 MG CAP PO SCH (15:30)
[2020-07-30] MEDS ORDERED: CEFDINIR 300 MG CAP ONE (15:56)
[2020-07-31] MEDS ORDERED: APIXABAN 5 MG TAB PO SCH (09:00)
--- NOTE | 2020-07-31 09:30 | DS ---
SUPERVISING PHYSICIAN: Solomon Rogers MD ADMISSION DIAGNOSIS: 1. COVID pneumonitis. 2. Pulmonary embolus involving the left lower lobe, pulmonary artery system and segmental arteries and lingula as well as the pulmonary artery branches from the right upper lobe pulmonary artery likely secondary to #1 with elevated D-dimer. 3. Electrolyte imbalance with hyponatremia. 4. Metabolic acidosis likely due to some mild hypoxia as noted in #1 with no signs of underlying sepsis. 5. History of hypertension. 6. History of type 2 diabetes. 7. History of Alzheimer's disease just recently diagnosed in 2019. 8. History of coronary artery disease with carotid artery stenosis and previous coronary artery bypass graft. DISCHARGE DIAGNOSIS: 1. COVID-19 pneumonitis with left lower lobe pneumonia. 2. Pulmonary embolus secondary to #1. 3. Electrolyte imbalance to include hyponatremia, resolved with treatment. 4. Metabolic acidosis, secondary to #1, resolved with treatment. 5. Hypertension. 6. Type 2 diabetes mellitus. 7. Alzheimer's disease recently diagnosed in 2019. 8. History of coronary artery disease with carotid artery stenosis and previous coronary artery bypass graft. REASON FOR HOSPITALIZATION: Mr. De La Rosa is a 69 year-old male patient who presented to the Emergency Department today complaining of some shortness of breath. He tested positive for COVID approximately 4 days previously. Since that point, his symptoms persistently worsened and he has significant shortness of breath today. He has also had a low grade fever of 101. He denied chest pain, nausea or vomiting or chills. He does have a significant history of previous stents and a coronary artery bypass graft. Workup in the Emergency Room showed he had a D-dimer of 732. CT of his chest did show a small pulmonary thrombus in the segmental branches of the left lower lobe pulmonary artery. There is also note of bilateral atelectasis and bilateral subpleural ground glass densities. His other labs showed a normal white count with a left shift and low lymphocyte count as well. His white count was 5,600. Chemistries showed sodium of 132, he did have an anion gap of 19.3, lactic acid was normal at 1.0 with a calcium of 8.0 Bilirubin slightly elevated at 1.2. Other liver functions showing to be within normal limits. Troponin and BNP were normal. C- reactive protein was pending. Blood cultures were completed. He was started on Lovenox and treatment for underlying COVID pneumonia. He is now going to be placed in observation initially for further evaluation and treatment. LABORATORY: White count on discharge was 3,100, hemoglobin 13.1, hematocrit 38.9, platelet count 236,000. Differential was without a left shift with a low lymphocytic count. Coagulation studies showed elevated D-dimer initially on admission at 732 and at was 172. PTT 37.4, fibrinogen 439. Chemistries showed normal electrolytes at discharge with creatinine 0.85. Blood sugars ranged between 119 and 224. Calcium 8.2 corrected to 8.3 for albumin of 3.1. Liver functions all within normal limits. Troponin less than 0.02. BNP normal at 27. C-reactive protein down from 7.1 to 4.6. Urinalysis showed 500 glucose with 40 ketones. MICROBIOLOGY: Blood cultures are negative at 48 hours. RADIOLOGY: CT of the chest per radiologic interpretation prior to admission in the Emergency Room shows findings consistent with pulmonary thrombus involving the left lower lobe pulmonary artery system as well as the right upper lobe pulmonary artery system. Please see that report for details. There is also noted of bibasilar atelectasis with bilateral subpleural ground glass densities. Chest x-rays on discharge on 07/30/20 was showing stable left basilar patchy airspace disease with left focus of atelectasis in the left midlung. EKG showed normal sinus rhythm with normal QRS, normal ST segment, non ST wave changes, but negative for any indication of acute ischemia. HOSPITAL COURSE: Mr. De La Rosa was placed in observation for further treatment of COVID pneumonitis with developing pneumonia as well as confirmed PE. He was started on Lovenox 1 mg per kg and then transitioned to Eliquis prior to discharge on 10 mg daily. He did well with treatment with Remdesivir, azithromycin, Rocephin, Decadron, breathing treatments, oxygen and was showing good improvement and was maintaining O2 saturations on room air at 95%. On discharge, temperature was 97.2, pulse 62, blood pressure 123/81, respirations 20, saturation 95% on room air. With ambulation, he was maintaining 94% and no distress. It was felt he had improved clinically well enough to continue with outpatient management. Therefore, he was discharged home. PLAN: Mr. De La Rosa was discharged to followup with Dr. Castle. He is to call his office on Friday to schedule a followup appointment. He was to resume a diabetic diet, increase his activity as tolerated and continue with aggressive pulmonary hygiene at home. He was to return to the Emergency Department or call Dr. Castle if he had any concerning symptoms. MEDICATIONS PRESCRIBED ON DISCHARGE: 1. Eliquis starter pack which he will roller picker in the office in the morning. He was given a dose of Eliquis 10 mg prior to discharge. 2. Align 4 mg daily, no refills. 3. Dexamethasone 6 mg daily, #7, no refills. 4. Guaifenesin as needed 600 mg twice daily. 5. Cefdinir 300 mg twice daily, #14. 6. Albuterol inhaler as needed. 7. Azithromycin 500 mg for 2 additional days, no refills. Again, he will need followup in regards to his pulmonary embolus and continuation of Eliquis and the starter pack. CONDITION ON DISCHARGE: Stable and improved. DISPOSITION: The patient was discharged home. #[id number] [facility]
[2020-08-06] MEDS ORDERED: APIXABAN 5 MG TAB PO SCH (09:00)
== END 2020-07-30 16:15 | disposition home or self-care (01) ==
LOC: ER 10:49 → MS 15:43
PROVIDERS: ADMIT Nurse Practitioner Family; ATTEND Nurse Practitioner Family
DX: U07.1 COVID-19 (principal); J12.89 Other viral pneumonia; I26.94 Multiple subsegmental thrombotic pulmonary emboli without acute cor pulmonale; E87.8 Other disorders of electrolyte and fluid balance, not elsewhere classified; E87.1 Hypo-osmolality and hyponatremia; E87.2 Acidosis; I10 Essential (primary) hypertension; E11.9 Type 2 diabetes mellitus without complications; G30.9 Alzheimer's disease, unspecified; F02.80 Dementia in other diseases classified elsewhere, unspecified severity, without behavioral disturbance, psychotic disturbance, mood disturbance, and anxiety; I25.10 Atherosclerotic heart disease of native coronary artery without angina pectoris; I65.29 Occlusion and stenosis of unspecified carotid artery; Z95.1 Presence of aortocoronary bypass graft; Z79.02 Long term (current) use of antithrombotics/antiplatelets; Z79.84 Long term (current) use of oral hypoglycemic drugs; Z79.899 Other long term (current) drug therapy
CPT/HCPCS: 96366 ×2; 96367; 96365; 96368; 96375; 96376 ×2; 96372 ×3; J0696 ×3; J7030; J7050 ×9; J1100 ×2; J0456 ×3; J1650 ×4; J1815; 85379 ×3; 80048 ×2; 80053 ×2; 82948 ×6; 36415 ×5; 85384 ×3; 81001; 80076; 86140 ×3; 85025 ×3; 82550 ×3; 87040 ×2; 82728; 83615 ×3; 83735 ×3; 85730 ×3; 84484 ×4; 83880; 36416 ×3; 83605; 71045 ×3; 71275; 94760 ×6; 94664; 94640 ×7; 94762; 99285; 93005; G0378

== ENCOUNTER → 2020-08-08 | Outpatient (CLI) | payer MEDICARE, OTHER ==
--- NOTE | 2020-08-08 10:20 | CT ---
EXAM DESCRIPTION: Chest w/o Contrast CLINICAL HISTORY: 69 years Male, COVID 19 TECHNIQUE: This exam was performed according to our departmental dose-optimization program, which includes automated exposure control, adjustment of the mA and/or kV according to patient size and/or use of iterative reconstruction technique. COMPARISON: 07/28/2020 FINDINGS: The thyroid gland is unremarkable. No axillary adenopathy. Median sternotomy/CABG. Coronary artery calcifications. No pericardial effusion. LAP-BAND. Small hiatal hernia. No evidence of acute process in the visualized upper abdomen. No mediastinal adenopathy. No pneumothorax. No pleural effusion. Increased multifocal bilateral peripheral groundglass airspace disease. No focal consolidation. No suspicious pulmonary nodule. No acute or suspicious osseous abnormality. Scattered degenerative changes present. IMPRESSION: Increased multifocal bilateral peripheral groundglass airspace disease which is most likely infectious. Electronically signed by: Mike Hu MD 08/08/2020 10:18 AM SMALL ANIMAL VETERINARIAN
== END ==
LOC: CT 08:01
PROVIDERS: ATTEND Family Medicine
DX: U07.1 COVID-19 (principal)

== ENCOUNTER → 2020-08-15 | Outpatient (CLI) | payer MEDICARE, OTHER | LOC: NC 09:37 | PROVIDERS: ATTEND Family Medicine | DX: E11.9 Type 2 diabetes mellitus without complications (principal); I25.10 Atherosclerotic heart disease of native coronary artery without angina pectoris ==

== ENCOUNTER → 2020-08-24 | Outpatient (CLI) | payer MEDICARE, OTHER | LOC: LAB.O 13:32 | PROVIDERS: ATTEND Internal Medicine Hematology & Oncology | DX: I26.99 Other pulmonary embolism without acute cor pulmonale (principal); D53.9 Nutritional anemia, unspecified; Z79.899 Other long term (current) drug therapy ==